=== PATIENT | female | born 1970 ===

== ENCOUNTER 2021-10-25 11:20 | Outpatient (CLI) | payer OTHER | END 2021-10-25 11:27 | disposition home or self-care (01) | LOC: SONOGRAMA 11:20 | PROVIDERS: ATTEND Pathology Anatomic Pathology & Clinical Pathology | DX: E04.9 Nontoxic goiter, unspecified (principal) ==

== ENCOUNTER 2022-12-08 10:01 | Outpatient (CLI) | payer OTHER | END 2022-12-08 10:06 | disposition home or self-care (01) | LOC: SONOGRAMA 10:01 | PROVIDERS: ATTEND Pathology Anatomic Pathology & Clinical Pathology | DX: D34 Benign neoplasm of thyroid gland (principal); E04.9 Nontoxic goiter, unspecified ==